=== PATIENT | female | born 1990 | race Caucasian/White ===

== ENCOUNTER 2017-04-15 17:50 | Emergency (ER) | payer OTHER ==
--- NOTE | 2017-04-15 19:12 | PDOC ---
Rapid Medical Evaluation Chief Complaint: Pain, Acute Time Seen by Provider: 04/15/17 19:10 Medical Evaluation: Allergies Allergy/AdvReac Type Severity Reaction Status Date / Time No Known Allergies Allergy Verified 04/15/17 19:09 04/15/17 19:11 pt c/o: fver, cough, headache, lightheaded, rt sided chest pain with deep breathing, sob Pt on brief exam: VSS Pt ordered for : none pt to proceed to the ED: Discharge Disposition - Diagnosis Cough - Referrals - Patient Instructions - Post Discharge Activity
[2017-04-15 19:13] VITALS: BP 144/87; PULSE 73; TEMP 97.8; BMI 27.3
--- NOTE | 2017-04-15 20:24 | PDOC ---
History of Present Illness - General Chief Complaint: Pain, Acute Stated Complaint: PAIN Time Seen by Provider: 04/15/17 19:10 History Source: Patient, Parent(s) Exam Limitations: No Limitations - History of Present Illness Initial Comments: 04/15/17 20:23 Patient is a [27-year-old female, no significant medical history currently on no medication presents with 5 day history of significant nasal congestion, tactile fever, headache and dizziness. Was seen in urgent care and told to come to emergency department for headache influenza was negative.] Past Medical History: [Denies]. Allergies: No known allergies Medications: [None] Family History: Non-contributory Social History: Denies smoking, alcohol use, or IVDU Vital signs on arrival are [notable for pulse of 96.] Review of Systems GENERAL/CONSTITUTIONAL: [No fever or chills. No weakness. No weight change.] HEAD, EYES, EARS, NOSE AND THROAT: [No change in vision. No ear pain or discharge. No sore throat. ] CARDIOVASCULAR: [No chest pain or shortness of breath.] RESPIRATORY: [No cough, wheezing, or hemoptysis.] GASTROINTESTINAL: [No nausea, vomiting, diarrhea or constipation. No rectal bleeding.] GENITOURINARY: [No dysuria, frequency, or change in urination.] MUSCULOSKELETAL: [No joint or muscle swelling or pain. No neck or back pain.] SKIN AND BREASTS: [No rash or easy bruising.] NEUROLOGIC: [No headache, vertigo, loss of consciousness, or loss of sensation.] PSYCHIATRIC: [No depression or anxiety.] ENDOCRINE: [No increased thirst. No abnormal weight change.] HEMATOLOGIC/LYMPHATIC: [No anemia, easy bleeding, or history of blood clots.] ALLERGIC/IMMUNOLOGIC: [No hives or skin allergy. No latex allergy.] Physical Exam: GENERAL: [The patient is awake, alert, and fully oriented, in no acute distress. ] HEAD: [Normal with no signs of trauma. Frontal sinus pressure and pain, right nares is erythematous with discharge] EYES: [Pupils equal, round and reactive to light, extraocular movements intact, sclera anicteric, conjunctiva clear.] ENT: [Ears normal, nares patent, oropharynx clear without exudates. Moist mucous membranes. No uvula deviation] NECK: [Normal range of motion, supple without lymphadenopathy, JVD, or masses.] LUNGS: [Breath sounds equal, clear to auscultation bilaterally. No wheezes, and no crackles.] HEART: [Regular rate and rhythm, normal S1 and S2 without murmur, rub or gallop. ] ABDOMEN: [Soft, nontender, normoactive bowel sounds. No guarding, no rebound. No masses. No bruising or abrasions] MUSCULOSKELETAL: [Normal range of motion, no edema. No clubbing or cyanosis. No cords, erythema, or tenderness. No CVA Tenderness with fist palpation.] NEUROLOGICAL: [Cranial nerves II through XII grossly intact. Normal speech, normal gait. Romberg negative] SKIN: [Warm, Dry, normal turgor, no rashes or lesions noted.] Past History - Past Medical History Allergies/Adverse Reactions: Allergies Allergy/AdvReac Type Severity Reaction Status Date / Time No Known Allergies Allergy Verified 04/15/17 19:09 Home Medications: Ambulatory Orders Amox-Tr/K Cl [Augmentin - 875Mg Tablet] 1 tab PO BID #14 tablet 04/15/17 Fluticasone Prop 0.05% Nasal [Flonase -] 1 - 2 spray NS BID #1 spray.pump Ibuprofen [Motrin -] 600 mg PO QID #20 tablet 04/15/17 COPD: No DVT: No Dementia: No - Immunization History Immunization Up to Date: No - Suicide/Smoking/Psychosocial Hx Smoking History: Never smoked Have you smoked in the past 12 months: No Information on smoking cessation initiated: No Hx Alcohol Use: No Drug/Substance Use Hx: No Substance Use Type: None *Physical Exam - Vital Signs Last Vital Signs Temp Pulse Resp BP Pulse Ox 97.8 F 73 18 144/87 99 04/15/17 19:09 04/15/17 19:09 04/15/17 19:09 04/15/17 19:09 04/15/17 19:09 Medical Decision Making - Medical Decision Making 04/15/17 20:40 A/P: Patient with a significant sinusitis with discharge on Augmentin, Flonase and Motrin for pain. Follow-up with ENT. If any increased headache, nausea vomiting, unsteady gait, or any other concerns return to ER *DC/Admit/Observation/Transfer Diagnosis at time of Disposition: Sinusitis Qualifiers: Sinusitis location: frontal Chronicity: acute Recurrence: non-recurrent Qualified Code(s): J01.10 - Acute frontal sinusitis, unspecified - Discharge Dispostion Disposition: HOME Condition at time of disposition: Stable Admit: No - Prescriptions Prescriptions: Amox-Tr/K Cl [Augmentin - 875Mg Tablet] 1 tab PO BID #14 tablet Fluticasone Prop 0.05% Nasal [Flonase -] 1 - 2 spray NS BID #1 spray.pump Ibuprofen [Motrin -] 600 mg PO QID #20 tablet - Referrals Referrals: Amy Flores MD [Primary Care Provider] - Adair Linares MD [Staff Physician] - - Patient Instructions Printed Discharge Instructions: Sinusitis Additional Instructions: Please increase your fluid intake, please take Motrin as needed for pain, recommend follow-up with ENT if pain persists in 2 days. - Post Discharge Activity Forms/Work/School Notes: Back to Work
== END 2017-04-15 20:47 | disposition home or self-care (01) ==
LOC: JERFT 17:50
DX: J01.10 Acute frontal sinusitis, unspecified (principal)
CPT/HCPCS: 99281-25

== ENCOUNTER 2017-05-05 13:35 | Emergency (ER) | payer OTHER ==
[2017-05-05 13:45] VITALS: BP 139/94; PULSE 72; TEMP 99.2; BMI 27.3
--- NOTE | 2017-05-05 13:48 | PDOC ---
History of Present Illness - General Chief Complaint: Ear Problem Stated Complaint: B/L EAR PAIN Time Seen by Provider: 05/05/17 13:41 - History of Present Illness Initial Comments: 05/05/17 13:41 Ms Randhawa is a 27 yo F who presents to the ER with a complaint of bilateral ear pain R>L which began 2 days ago No fevers Recent URI No throat pain No cough pt now has a migraine headache No trauma to the head or ear PMH: migraines PSH: Denies Meds: excedrine migraine ALL: NKDA Social: Denies drug or cigarette use GENERAL/CONSTITUTIONAL: No: fever, chills, weakness, loss of appetite. HEAD, EYES, EARS, NOSE AND THROAT: Yes ear pain No: change in vision, discharge , sore throat, throat swelling. CARDIOVASCULAR: No: chest pain, lightheadedness, palpitations, syncope RESPIRATORY: No: cough, shortness of breath, wheezing GASTROINTESTINAL: No: nausea, vomiting, diarrhea, abdominal pain GENITOURINARY: No: dysuria, hematuria, frequency, urgency, flank pain. MUSCULOSKELETAL: No: back pain, neck pain, joint pain, muscle swelling or pain SKIN: No: lesions, pallor, rash or easy bruising. NEUROLOGIC: No: headache, vertigo, paresthesias, weakness ENDOCRINE: No: unexplained weight gain or loss HEMATOLOGIC/LYMPHATIC: No: anemia, easy bleeding, swelling nodes. GENERAL: The patient is in no acute distress. HEAD: Normal EYES: PERRLA, EOMI, sclera anicteric, conjunctiva clear. ENT: Ears normal, nares patent, oropharynx clear without exudates. Moist mucous membranes. External auditory canal erythematous, TM nml No oropharyngeal erythema, no tonsillar enlargement NECK: Normal range of motion, supple LUNGS: Breath sounds equal, clear to auscultation bilaterally. No wheezes, and no crackles. HEART:Regular rate and rhythm, normal S1 and S2 without murmur, rub or gallop. ABDOMEN: Soft, nontender, normoactive bowel sounds. No guarding, no rebound. No masses palpable. EXTREMITIES: Normal range of motion, no edema. No clubbing or cyanosis. No erythema, or tenderness. NEUROLOGICAL: Cranial nerves II through XII grossly intact. Normal speech. No focal neurological deficits. MUSCULOSKELETAL: Back non-tender to palpation, no CVA tenderness SKIN: Warm, Dry, normal turgor, no rashes or lesions noted. 05/05/17 13:44 Past History - Past Medical History Allergies/Adverse Reactions: Allergies Allergy/AdvReac Type Severity Reaction Status Date / Time No Known Allergies Allergy Verified 05/05/17 13:37 Home Medications: Ambulatory Orders Amoxicillin - [Amoxicillin 500mg Capsule -] 500 mg PO BID #10 capsule 05/05/17 Ofloxacin Otic [Floxin Otic -] 10 drop OU BID 7 Days #140 drops 05/05/17 COPD: No DVT: No Dementia: No - Immunization History Immunization Up to Date: No - Suicide/Smoking/Psychosocial Hx Smoking History: Never smoked Have you smoked in the past 12 months: No Hx Alcohol Use: No Drug/Substance Use Hx: No Substance Use Type: None Medical Decision Making - Medical Decision Making 05/05/17 13:44 ? Otitis externa Pt low grade temp in the ER Will: discharge to home Abx drops and amoxicillin Follow up with PMD Clinical Impression: ?otitis externa, initial presentation *DC/Admit/Observation/Transfer Diagnosis at time of Disposition: Otitis Qualifiers: Laterality: right Qualified Code(s): H66.91 - Otitis media, unspecified, right ear - Discharge Dispostion Disposition: HOME Condition at time of disposition: Stable Admit: No - Prescriptions Prescriptions: Amoxicillin - [Amoxicillin 500mg Capsule -] 500 mg PO BID #10 capsule Ofloxacin Otic [Floxin Otic -] 10 drop OU BID 7 Days #140 drops - Referrals - Patient Instructions Printed Discharge Instructions: Otitis Externa, DI for Otitis Externa Additional Instructions: Please take medications as prescribed Please follow up with your primary care physician Please take motrin for ear pain and treat your migraine medications per usual - Post Discharge Activity
== END 2017-05-05 14:10 | disposition home or self-care (01) ==
LOC: FER 13:35
DX: H66.91 Otitis media, unspecified, right ear (principal)
CPT/HCPCS: 99282-25

== ENCOUNTER 2018-04-29 18:46 | Emergency (ER) | payer OTHER ==
[2018-04-29 18:58] VITALS: BP 124/69; PULSE 62; TEMP 98.4; BMI 28.5
[2018-04-29] MEDS ORDERED: NAPROXEN 500 MG TABLET (FP) PO ONE (19:10)
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
[2018-04-29] MEDS ORDERED: NAPROXEN 500 MG TABLET (FP) ONE (19:12)
== END 2018-04-29 19:35 | disposition home or self-care (01) ==
LOC: FER 18:46
DX: Z04.1 Encounter for examination and observation following transport accident (principal); V49.40XA Driver injured in collision with unspecified motor vehicles in traffic accident, initial encounter; Y93.89 Activity, other specified; Y92.410 Unspecified street and highway as the place of occurrence of the external cause
CPT/HCPCS: 72050-TC-FY; 99282-25

== ENCOUNTER 2018-07-21 23:11 | Emergency (ER) | payer OTHER ==
[2018-07-21 23:23] VITALS: BP 121/73; PULSE 68; TEMP 97; BMI 28.1
[2018-07-21] MEDS ORDERED: SULFAMETHOXAZOLE/TRIMETHOPRIM 800MG/160MG D.S. TABLET PO ONE (23:35)
[2018-07-21] MEDS ORDERED: KETOROLAC TROMETHAMINE 30 MG/1 ML VIAL IM ONE (23:35)
[2018-07-21] MEDS ORDERED: SULFAMETHOXAZOLE/TRIMETHOPRIM 800MG/160MG D.S. TABLET ONE (23:38)
[2018-07-21] MEDS ORDERED: KETOROLAC TROMETHAMINE 30 MG/1 ML VIAL ONE (23:38)
--- NOTE | 2018-07-21 23:40 | PDOC ---
History of Present Illness - General Chief Complaint: Pain, Acute Stated Complaint: RT ARM PAIN Time Seen by Provider: 07/21/18 23:15 History Source: Patient Exam Limitations: No Limitations - History of Present Illness Initial Comments: 07/21/18 23:35 28 year old female with no past medical history (had prior abscesses) presents with two complaints. 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 Stated that she started to develop a small boil which then progressed to three. No fevers or chills. Does report that it's uncomfortable sitting. This occurred on both sides of the buttocks and not in the rectum. Pt also reported that she overworked her right shoulder during the gym exercises. Was doing arm exercises. Today she felt some Right shoulder tightness. Pt reports that this occurs not infrequently. States that it feels like she strained it. No numbness or weakness. No traumatic injury. Past History - Past Medical History Allergies/Adverse Reactions: Allergies Allergy/AdvReac Type Severity Reaction Status Date / Time No Known Allergies Allergy Verified 04/29/18 18:47 Home Medications: Ambulatory Orders Indomethacin 07/21/18 Naproxen 500 mg PO BID PRN #20 tablet 07/21/18 Sulfamethoxazole/Trimethoprim [Bactrim Ds -] 1 tab PO BID #14 tablet 07/21/18 COPD: No DVT: No Dementia: No - Immunization History Immunization Up to Date: No - Suicide/Smoking/Psychosocial Hx Smoking History: Never smoked Have you smoked in the past 12 months: No Hx Alcohol Use: No Drug/Substance Use Hx: No Substance Use Type: None Review of Systems - Review of Systems Able to Perform ROS?: Yes Comments:: 07/21/18 23:37 GENERAL/CONSTITUTIONAL: No fever or chills. No weakness. HEAD, EYES, EARS, NOSE AND THROAT: No change in vision. No ear pain or discharge. No sore throat. CARDIOVASCULAR: No chest pain or shortness of breath. RESPIRATORY: No cough, wheezing, or hemoptysis. GASTROINTESTINAL: No nausea, vomiting, diarrhea or constipation. GENITOURINARY: No dysuria, frequency, or change in urination. MUSCULOSKELETAL: + right shoulder and R trapezius pain. No neck or back pain. SKIN: + "Boils" on buttocks NEUROLOGIC: No headache, vertigo, loss of consciousness, or change in strength/ sensation. ENDOCRINE: No increased thirst. No abnormal weight change. HEMATOLOGIC/LYMPHATIC: No anemia, easy bleeding, or history of blood clots. ALLERGIC/IMMUNOLOGIC: No hives or skin allergy. *Physical Exam - Vital Signs Last Vital Signs Temp Pulse Resp BP Pulse Ox 97 F L 68 16 121/73 100 07/21/18 23:19 07/21/18 23:19 07/21/18 23:19 07/21/18 23:19 07/21/18 23:19 - Physical Exam Comments: 07/21/18 23:39 GENERAL: Awake, alert, and fully oriented, in no acute distress HEAD: No signs of trauma EYES: EOMI, sclera anicteric, conjunctiva clear ENT: Auricles normal inspection, hearing grossly normal, nares patent, oropharynx clear without exudates. Moist mucosa NECK: Normal ROM, supple, no c-spine tenderness. TTP R trapezius and right upper back and right anterior shoulder. No tenderness along the clavicle. No deformity appreciated. Pt has FROM of right shoulder and sensation intact over the deltoid. RUE with 2+ radial pulse. BUTTOCKS: Very small approximately 0.25 x 0.25 raised lesions on bilateral buttocks (3 in total). Mildly TTP to palpation. No fluctuance appreciated. EXTREMITIES: Normal range of motion, no edema. No clubbing or cyanosis. No cords, erythema, or tenderness NEUROLOGICAL: Cranial nerves II through XII grossly intact. Normal speech, normal gait SKIN: Warm, Dry, normal turgor, no rashes or lesions noted. Medical Decision Making - Medical Decision Making 07/22/18 00:58 Vital Signs Temp Pulse Resp BP Pulse Ox 97 F L 68 16 121/73 100 07/21/18 23:19 07/21/18 23:19 07/21/18 23:19 07/21/18 23:19 07/21/18 23:19 Right shoulder: Likely acute on chronic right shoulder strain. IM toradol and d/c with PRN naproxen. Follow up with orthopedics. Buttocks: The abscesses are too small to perform an I&D. Pt given a prescription for bactrim. Pt given verbal instructions that if the abscesses worsen on the antibiotics that the patient should return to the ER for I&D. Pt verbalizes and agrees with plan. I discussed the physical exam findings, ancillary test results and final diagnoses with the patient. I answered all of the patient's questions. The patient was satisfied with the care received and felt comfortable with the discharge plan and treatment plan. The patient will call their primary care physician within 24 hours to arrange follow-up and will return to the Emergency Department with any new, persistant or worsening symptoms. *DC/Admit/Observation/Transfer Diagnosis at time of Disposition: Abscess Right shoulder strain Qualifiers: Encounter type: initial encounter Qualified Code(s): S46.911A - Strain of unspecified muscle, fascia and tendon at shoulder and upper arm level, right arm , initial encounter - Discharge Dispostion Disposition: HOME Condition at time of disposition: Stable Decision to Admit order: No - Prescriptions Prescriptions: Naproxen 500 mg PO BID PRN #20 tablet PRN Reason: Pain Sulfamethoxazole/Trimethoprim [Bactrim Ds -] 1 tab PO BID #14 tablet - Referrals Referrals: Amy Flores MD [Primary Care Provider] - - Patient Instructions Printed Discharge Instructions: DI for Shoulder Sprain, DI for Skin Abscess Additional Instructions: At this time, the abscesses are too small for incision and drainage. Please take the antibiotics (bactrim) every 12 hours for 7 days. It is important that you complete this antibiotics as this will help with the healing. If you notice that the abscess is getting bigger despite the antibiotics, please return to the ER as you may need it opened up. You may use warm compresses on the abscesses to help with the healing process. Please use warm soap and water to the area. For your shoulder, you may make an appointment with an orthopedist. Call to schedule an appointment. Take 500 mg naproxen every 12 hours as needed for pain control. Print Language: SERBIAN - Post Discharge Activity
== END 2018-07-21 23:47 | disposition home or self-care (01) ==
LOC: FER 23:11
PROC: 3E0233Z Introduction of Anti-inflammatory into Muscle, Percutaneous Approach (ICD-10-PCS; principal; 2018-07-21)
DX: L02.31 Cutaneous abscess of buttock (principal); S46.911A Strain of unspecified muscle, fascia and tendon at shoulder and upper arm level, right arm, initial encounter; X58.XXXA Exposure to other specified factors, initial encounter; Y93.89 Activity, other specified; Y92.89 Other specified places as the place of occurrence of the external cause
CPT/HCPCS: 99282-25

== ENCOUNTER 2020-03-04 09:25 | Emergency (ER) | payer OTHER ==
[2020-03-04 09:33] VITALS: BP 129/76; PULSE 82; TEMP 99; BMI 30.4
[2020-03-04] MEDS ORDERED: SODIUM CHLORIDE 0.9% 500 ML INFUS.BAG IV ONE (09:52)
[2020-03-04 10:31] LABS: EPITHELIAL CELLS FEW /hpf
== END 2020-03-04 12:40 | disposition home or self-care (01) ==
LOC: FER 09:25
DX: O20.0 Threatened abortion (principal); Z3A.12 12 weeks gestation of pregnancy
CPT/HCPCS: 36415; 76801-TC; 81003; 81015; 84702; 86850; 86900; 86901; 87086; 99285-25

== ENCOUNTER 2020-04-29 19:21 | Emergency (ER) | payer OTHER ==
[2020-04-29 19:31] VITALS: BP 112/69; PULSE 84; TEMP 98.2; BMI 31.6
[2020-04-29] MEDS ORDERED: ACETAMINOPHEN 500 MG TABLET (FP) PO ONE (21:58)
[2020-04-29] MEDS ORDERED: ACETAMINOPHEN 325 MG TABLET (FP) PO ONE (22:00)
[2020-04-29] MEDS ORDERED: ACETAMINOPHEN 325 MG TABLET (FP) ONE (22:01)
== END 2020-04-29 22:11 | disposition home or self-care (01) ==
LOC: FER 19:21
DX: R52 Pain, unspecified (principal); J02.9 Acute pharyngitis, unspecified; H93.8X3 Other specified disorders of ear, bilateral
CPT/HCPCS: 87070; 87804; 99283-25; C9803; U0003